=== PATIENT | female | born 1955 | race African-American/Black ===

== ENCOUNTER 2018-02-05 06:33 | Emergency (ER) | payer SELFPAY ==
[~2018-02-05] VITALS: Ht 154.9 cm; Wt 73.9 kg
[~2018-02-05 06:33] MED LIST: HYDR25TA
[2018-02-05] MEDS ORDERED: CYCLOBENZAPRINE 10MG TABLET PO ONE (07:30)
[2018-02-05] MEDS ORDERED: KETOROLAC 60MG/2ML VIAL IM ONE (07:30)
[2018-02-05 09:27] VITALS: BP 178/76
== END 2018-02-05 09:30 | disposition home or self-care (01) ==
LOC: ER 06:33
DX: M25.511 Pain in right shoulder (principal); I10 Essential (primary) hypertension; V43.12XA Car passenger injured in collision with other type car in nontraffic accident, initial encounter; Y93.89 Activity, other specified; Y92.410 Unspecified street and highway as the place of occurrence of the external cause; Z88.8 Allergy status to other drugs, medicaments and biological substances
CPT/HCPCS: 73030; 73060; 81025; 96372; 99284; J1885; Z7610